=== PATIENT | male | born 1945 | race Caucasian/White ===

== ENCOUNTER → 2018-08-30 | Outpatient (CLI) | payer MEDICARE ==
--- NOTE | 2018-08-30 19:52 | Diagnostic Imaging Report ---
Bone Scan with SPECT Clinical information: C61: Malignant neoplasm of prostate Comparison studies: None Technique: Approximately 3 hours following intravenous administration of 26 millicuries of Tc-99m MDP, delayed total body and selected spot images were obtained. Tomographic images of the lower thoracic and lumbar spine were also obtained Findings: Foci of mildly increased tracer activity are seen in the upper cervical spine and mid thoracic spine, consistent with degenerative changes. Foci of markedly increased tracer are seen in L4 and L5 on the right. On the tomographic images, this uptake is localized to the posterior vertebral body and pedicle on the right side of L4 and the the right lateral vertebral body the facet joints and spinous process of L5.. Markedly increased tracer is seen in the bilateral manubrioclavicular joints in a symmetric pattern. Mildly increased tracer is seen in the shoulders, hands, knees, ankles and feet in a relative symmetric pattern that is typical of degenerative changes. Otherwise, distribution of tracer activity is unremarkable throughout the skeletal system. No abnormal accumulation of tracer is seen in the soft tissues or urinary tract. Impression: 1. The markedly osteoblastic processes in L4 and L5 are likely related to severe degenerative change but the location involving posterior vertebral bodies and pedicles is worrisome for metastatic bone disease. Correlation with CT is warranted. 2. Extensive degenerative changes in the cervical and thoracic spine as well as in multiple peripheral joints including the manubrioclavicular joints are present. Signed by: Dr. Aria Allison M.D. on 08/30/2018 7:48 PM
== END ==
LOC: NM 09:12
PROVIDERS: ATTEND Urology
DX: C61 Malignant neoplasm of prostate (principal)
CPT/HCPCS: 78306; A9503

== ENCOUNTER → 2018-10-08 | Outpatient (CLI) | payer MEDICARE ==
[~2018-10-08] MED LIST: IOPAMIDOL 370 MG/ML 200 ML INFUS..BTL INJ ONE; SODIUM CHLORIDE 0.9% 50ML 50 ML ONE
--- NOTE | 2018-10-08 08:42 | Diagnostic Imaging Report ---
EXAMINATION: PA and lateral views of the chest. COMPARISON: None CLINICAL HISTORY: Prostate cancer DISCUSSION: The lungs are well-inflated. No focal airspace consolidation, pleural effusion, or pneumothorax. Nodular opacity projecting over the medial right clavicle, posterior right fifth rib and anterior right first rib likely represents summation of osseous and vascular structures. Atherosclerotic calcification of the thoracic aorta. Otherwise normal heart size. Convexity of the left paraspinal region of the mediastinum likely represents a hiatal hernia. No acute osseous abnormality. Multilevel degenerative disc changes of the thoracic spine. IMPRESSION: No acute cardiopulmonary abnormalities. Signed by: Dr. Adalid Naranjo M.D. on 10/08/2018 8:39 AM
[2018-10-08 08:56] LABS: BLOOD UREA NITROGEN 16 mg/dL (7-26); BUN/CREATININE RATIO 14 (6-25); CREATININE, SERUM 1.11 mg/dL (0.72-1.25); EST GLOMERULAR FILTRATION RATE > 60 ML/MIN (60-)
--- NOTE | 2018-10-08 10:04 | Diagnostic Imaging Report ---
EXAMINATION: CT of the abdomen and pelvis with contrast. TECHNIQUE: Spiral CT images of the abdomen and pelvis were performed from the lung bases to the lesser trochanters after the intravenous administration of 100 cc Isovue-370. And the oral administration of water. Coronal and sagittal reformatted images were obtained. COMPARISON: Chest radiograph same day, nuclear medicine bone scan 08/30/2018 CLINICAL HISTORY:Malignant neoplasm of prostate DISCUSSION: ABDOMEN/PELVIS: LOWER THORAX:Bandlike atelectasis in the right lung base. Right hemidiaphragmatic elevation. Left paraspinal convexity described on the comparison chest radiograph is shown to represent prominent posterior mediastinal fat. HEPATOBILIARY: No focal hepatic lesions. No intra-or extrahepatic biliary ductal dilation. The gallbladder is normal. SPLEEN: No splenomegaly. PANCREAS: No focal masses or ductal dilatation. ADRENALS: No adrenal nodules. KIDNEYS/URETERS: No hydronephrosis, stones, or solid mass lesions. PELVIC ORGANS/BLADDER: Urinary bladder is unremarkable. Prostate is mildly enlarged measuring 4.9 cm transversely. Left-sided pelvic phleboliths. PERITONEUM/RETROPERITONEUM: No free air or fluid. LYMPH NODES: No pelvic sidewall, retroperitoneal, or mesenteric lymphadenopathy. VESSELS: Atherosclerotic calcification of the abdominal aorta and major branch vessels without aneurysmal dilatation. 2 right renal arteries and a single left renal artery. The portal vein, splenic vein, and central superior mesenteric vein are patent. GI TRACT: The large bowel is notable for multiple descending and sigmoid colon diverticula without wall thickening or adjacent inflammatory change. The appendix is normal. The stomach is collapsed with prominent rugal folds. Small diverticulum projects from the second portion of the duodenum. No small bowel dilatation to suggest obstruction BONES AND SOFT TISSUE: No focal soft tissue abnormalities. No osseous destructive lesions. Osteoblastic activity at L4 and L5 on the comparison bone scan is shown to represent hypertrophic degenerative disc changes and facet arthropathy. IMPRESSION: No CT findings of intra-abdominal or pelvic metastatic disease. Osteoblastic activity of the lower lumbar spine described on the comparison nuclear medicine bone scan is shown to represent hypertrophic degenerative disc changes and facet arthropathy. Atherosclerotic vascular disease. Large bowel diverticulosis without findings of diverticulitis. Signed by: Dr. Adalid Naranjo M.D. on 10/08/2018 10:01 AM
== END ==
LOC: CT 07:47
PROVIDERS: ATTEND Urology
DX: C61 Malignant neoplasm of prostate (principal)
CPT/HCPCS: 36415; 71046; 74177; 82565; 84520; Q9967